=== PATIENT | male | born 1940 | race Caucasian/White ===

== ENCOUNTER 2017-10-18 07:37 | Day surgery (SDC) | payer MEDICARE ==
[2017-10-18] VITALS (8 sets, daily range): BP systolic 122–164; BP diastolic 69–92; PULSE 63–74; RESP 17–20; TEMP 97.8–97.9; O2SAT 93–99
[~2017-10-18] VITALS: Ht 182.9 cm; Wt 81.8 kg
[~2017-10-18 07:37] MED LIST: LISI-360 PO
[2017-10-18] MEDS ORDERED: SODIUM CHLOR 0.9% 1000 ML IV SCH (08:15)
[2017-10-18] MEDS ORDERED: LISI10TA3 PO (08:22)
[2017-10-18] MEDS ORDERED: PRAV10TA PO (08:23)
[2017-10-18] MEDS ORDERED: FINA5TAB2 PO (08:24)
[2017-10-18] MEDS ORDERED: LEVO0.5S18 EACH EYE (08:25)
[2017-10-18] MEDS ORDERED: FISH1200 PO (08:26)
[2017-10-18] MEDS ORDERED: LIDOCAINE 1%/EPINEPHrine 1:100,000 SOLN 50 ML VIAL ONE (09:17)
[2017-10-18] MEDS ORDERED: MIDAZOLAM HCL 2 MG/2 ML VIAL ONE (09:46)
--- NOTE | 2017-10-18 10:29 | PD.RAD ---
Post CT Procedure Prog Note Pre Procedure Diagnosis: (1) Lung mass (2) Retroperitoneal lymphadenopathy Post Procedure Diagnosis: (1) Lung mass (2) Retroperitoneal lymphadenopathy Procedure Date: Oct 18, 2017 Supervising Radiologist: Valerio Regan Anesthesia: Conscious Sedation Plan of Activity Patient to Unit: ROPU Patient Condition: Good See PACS Report for procedural detail/treatment Valerio Regan MD Oct 18, 2017 10:29
[2017-10-18] MEDS ORDERED: oxyCODONE/ACETAMINOPHEN 5 MG/325 MG TAB PO PRN (10:30)
--- NOTE | 2017-10-18 10:55 | RADRPT ---
EXAM DATE/TIME: 10/18/2017 09:52 [facility] COMPARISON: No previous studies available for comparison. INDICATIONS : Retoperitoneal mass SEDATION TIME: 40 minutes BIOPSY SITE: Left retroperitoneum MEDICATION(S): 1.) 2.5 mg midazolam (Versed) IV 2.) 150 mcg fentanyl (Sublimaze) IV DEVICE(S): 1.) 18 gauge Temno core biopsy needle 2.) 17 gauge introducer MEDICAL HISTORY : None. SURGICAL HISTORY : None. ENCOUNTER: Initial ACUITY: 1 day PAIN SCORE: 0/10 LOCATION: retroperitoneum A total of three core specimen(s) were obtained and sent to the laboratory for pathologic evaluation. PROCEDURE: 1. CT guided pelvicsoft tissue biopsy. 2. Conscious sedation with continuous EKG and oximetry monitoring. 3. EKG and oximetry remained stable throughout the procedure. Prior to the procedure informed consent was obtained. Any appropriate prior imaging studies were rev iewed. Using automated exposure control and adjustment of the mA and/or kV according to patient size, radiat ion dose was kept as low as reasonably achievable to obtain optimal diagnostic quality images. DICOM format image data is available electronically for review and comparison. The site was prepped in a sterile fashion. Full sterile technique was used, including cap, mask, delmar rile gloves and gown and a large sterile sheet. Hand hygiene and 2% chlorhexidine and/or betadine/al cohol prep was utilized per protocol for cutaneous antisepsis. The skin and subcutaneous tissues wer e infiltrated with local anesthetic solution. With CT guidance the previously identified target was localized. Biopsy was performed using the presc ribed needle as above. Adequate hemostasis was obtained with compression at the puncture site. Follow-up CT scan reveals no hemorrhage. The patient tolerated the procedure well and there were no complications. The patient was returned to the Radiology Outpatient Unit in stable condition. CONCLUSION: Uncomplicated CT guided biopsy. Valerio Regan MD on October 18, 2017 at 10:53 Board Certified Radiologist. This report was verified electronically.
--- NOTE | 2017-10-18 10:55 | RADRPT ---
EXAM DATE/TIME: 10/18/2017 09:52 [facility] COMPARISON: No previous studies available for comparison. INDICATIONS : Left lung mass SEDATION TIME: 40 minutes BIOPSY SITE: Left lung MEDICATION(S): 1.) 2.5 mg midazolam (Versed) IV 2.) 150 mcg fentanyl (Sublimaze) IV DEVICE(S): 1.) 20 gauge Temno core biopsy needle 2.) 19 gauge introducer MEDICAL HISTORY : None. SURGICAL HISTORY : None. ENCOUNTER: Initial ACUITY: 1 day PAIN SCORE: 0/10 LOCATION: chest A total of two core specimen(s) were obtained and sent to the laboratory for pathologic evaluation. PROCEDURE: 1. CT guided lung biopsy. Prior to the procedure informed consent was obtained. Any appropriate prior imaging studies were rev iewed. Using automated exposure control and adjustment of the mA and/or kV according to patient size, radiation dose was kept as low as reasonably achievable to obtain optimal diagnostic quality images. DICOM format image data is available electronically for review and comparison. The site was prepped in a sterile fashion. Full sterile technique was used, including cap, mask, delmar rile gloves and gown and a large sterile sheet. Hand hygiene and 2% chlorhexidine and/or betadine/al cohol prep was utilized per protocol for cutaneous antisepsis. The skin and subcutaneous tissues wer e infiltrated with local anesthetic solution. With CT guidance the previously identified target was localized. Biopsy was performed using the presc ribed needle as above. Adequate hemostasis was obtained with compression at the puncture site. Follow-up CT scan reveals no pneumothorax. Conscious sedation was performed with the prescribed dosages and duration as above in the presence of an independent trained radiology nurse to assist in the monitoring of the patient. EKG and oximetry remained stable throughout the procedure. The patient tolerated the procedure well and there were no complications. The patient was sent to Radiology Outpatient Unit in stable condition. CONCLUSION: Uncomplicated CT guided biopsy. Valerio Regan MD on October 18, 2017 at 10:54 Board Certified Radiologist. This report was verified electronically.
--- NOTE | 2017-10-18 13:42 | RADRPT ---
EXAM DATE/TIME: 10/18/2017 12:51 [facility] COMPARISON: CT NEEDLE BIOPSY LUNG, LEFT, October 18, 2017, 9:52. INDICATIONS : Post left lung biospy MEDICAL HISTORY : Left lung mass SURGICAL HISTORY : None. ENCOUNTER: Subsequent ACUITY: 1 day PAIN SCORE: 0/10 LOCATION: Left chest FINDINGS: Retrocardiac mass is identified. There is no pneumothorax following percutaneous biopsy. Right lung is clear. Heart remains normal in size. CONCLUSION: No evidence of pneumothorax following left lung mass biopsy. Washington Morel MD on October 18, 2017 at 13:39 Board Certified Radiologist. This report was verified electronically.
== END 2017-10-18 14:08 | disposition home or self-care (01) ==
LOC: HRAD 07:37 → HRIP 07:38 → HRAD 14:08
PROVIDERS: ATTEND Internal Medicine Hematology
DX: R91.8 Other nonspecific abnormal finding of lung field (principal); R19.09 Other intra-abdominal and pelvic swelling, mass and lump; R59.0 Localized enlarged lymph nodes; C85.90 Non-Hodgkin lymphoma, unspecified, unspecified site
CPT/HCPCS: 32405; 49180; 71045; 77012; 88305; 88341; 88342; 99152; 99153; J2250; J3010